=== PATIENT | female | born 1970 | race Hispanic/Latino ===

== ENCOUNTER 2017-02-28 11:08 | Emergency (ER) | payer BC ==
[~2017-02-28] VITALS: Ht 162.6 cm; Wt 121.0 kg
[~2017-02-28 11:08] MED LIST: ULTRAM50 MG PO; ZOFRAN ODT4 MG PO
[2017-02-28 11:52] LABS: EOSINOPHIL (%) 0.7 % (0-5); EOSINOPHIL COUNT 0.1 K/uL (0-0.3); HEMATOCRIT 35.6 % (36.0-46.0); IMMATURE GRANULOCYTE (%) 0.4 % (0.0-0.7); INSTRUMENT ABS NEUTROPHIL CT 5.3 K/uL; LYMPHOCYTE COUNT 1.1 K/uL (1.0-2.8); MCH 27.3 PG (29.0-34.0); MCHC 32.9 G/DL (30.0-36.0); MEAN PLAT.VOLUME 9.6 uM^3 (9.5-12.4); MONOCYTE (%) 7.5 % (3-12); MONOCYTE COUNT 0.5 K/uL (0-0.8); NEUTROPHIL (%) 75.6 % (45-76); NEUTROPHIL COUNT 5.3 K/uL (1.8-6.4); PLATELET COUNT 294 K/uL (156-360); RBC DIS.WIDTH-CV 15.1 % (11.8-14.6); RBC DIS.WIDTH-SD 45.7 % (39-53); RED BLOOD COUNT 4.29 M/uL (3.80-5.20)
[2017-02-28 12:03] LABS: CHLORIDE 102 mEq/L (99-109); POTASSIUM 3.9 mEq/L (3.7-5.4); SODIUM 134 mEq/L (136-147)
[2017-02-28 12:05] LABS: GLUCOSE 101 mg/dL (70-99)
[2017-02-28 12:06] LABS: ANION GAP 9 MEQ/L (2-14)
[2017-02-28 12:09] LABS: GFR ESTIMATE (CALCULATED) > 59 mL/min/
[2017-02-28 12:10] LABS: UREA NITROGEN (BUN) 13 mg/dL (9-23)
[2017-02-28 12:16] LABS: TROP-I INTERPRETATION NEGATIVE; TROPONIN-I < 0.01 ng/mL (0.0-0.30)
[2017-02-28 13:43] LABS: D-DIMER ELISA 0.58 mg/L FEU (< 0.57)
[2017-02-28 14:28] LABS: TROP-I INTERPRETATION NEGATIVE; TROPONIN-I < 0.01 ng/mL (0.0-0.30)
[2017-02-28] MEDS ORDERED: MOTRIN800 MG PO (14:36)
[2017-02-28 15:29] VITALS: BP 102/58
== END 2017-02-28 15:36 | disposition home or self-care (01) ==
LOC: EME 11:08
PROVIDERS: Emergency Medicine
DX: R07.89 Other chest pain (principal)
CPT/HCPCS: 71010; 71275; 80048; 84484; 85025; 85379; 93005; 99281; 99285; J1885; J2405